=== PATIENT | female | born 1970 | race Caucasian/White ===

== ENCOUNTER → 2023-03-20 15:52 | Outpatient (CLI) | payer OTHER, SELFPAY ==
[2023-03-20 18:09] LABS: Coronavirus 19, PCR Not Detected (NotDetected); Influenza A, PCR Not Detected (NotDetected); Influenza B, PCR Not Detected (NotDetected)
[2023-03-20 18:33] LABS: Basophils # 0.1 K/mm3 (0-0.2); Basophils % 0.3 % (0.1-2.0); Eosinophils # 0.1 K/mm3 (0.0-0.4); Eosinophils % 0.7 % (0.1-12.0); Hematocrit 42.4 % (37.0-47.0); Hemoglobin 14.1 g/dL (12.2-16.2); Lymphocytes # 1.2 K/mm3 (0.7-4.5); Lymphocytes % 7.5 % (10-50); Mean Corpuscular HGB Conc 33.2 g/dL (31.8-35.4); Mean Corpuscular Hemoglobin 32.3 pg (27.0-31.2); Mean Corpuscular Volume 97.3 fl (81-99); Mean Platelet Volume 10.1 fl (7.4-10.4); Monocytes # 1.2 K/mm3 (0.1-1.0); Neutrophils # 13.8 K/mm3 (1.8-7.8); Neutrophils % 84.4 % (37.0-80.0); Platelet Count 253 K/mm3 (142-424); Red Blood Count 4.36 M/mm3 (4.20-5.40); Red Cell Distribution Width 13.9 % (11.5-17.5); White Blood Count 16.4 K/mm3 (4.8-10.8)
[2023-03-20 18:37] LABS: MANUAL DIFFERENTIAL MANUAL DIFFERENTIAL (MANUAL DIFF)
[2023-03-20 19:34] LABS: Lymphocytes % 15 % (10-50); Monocytes % 6 % (2-9); Neutrophils % 79 % (42-76); Platelet Estimate Normal; RBC Morphology Normal; Total Cells Counted 100
== END ==
LOC: LAB.DROPOF 03-23 06:35
PROVIDERS: PCP Nurse Practitioner; Visit Provider Nurse Practitioner
DX: J06.9 Acute upper respiratory infection, unspecified (principal)
CPT/HCPCS: 85007; 85025; 87635; 87636; C9803; U0003; U0005

== ENCOUNTER → 2023-07-27 13:00 | Outpatient (CLI) | payer OTHER, SELFPAY ==
[2023-07-27 18:30] LABS: Basophils % 0.5 % (0.1-2.0); Eosinophils # 0.3 K/mm3 (0.0-0.4); Eosinophils % 3.5 % (0.1-12.0); Hematocrit 49.7 % (37.0-47.0); Hemoglobin 15.6 g/dL (12.2-16.2); Lymphocytes # 2.7 K/mm3 (0.7-4.5); Lymphocytes % 35.2 % (10-50); Mean Corpuscular HGB Conc 31.4 g/dL (31.8-35.4); Mean Corpuscular Hemoglobin 30.7 pg (27.0-31.2); Mean Corpuscular Volume 97.9 fl (81-99); Mean Platelet Volume 10.2 fl (7.4-10.4); Monocytes # 0.6 K/mm3 (0.1-1.0); Monocytes % 7.4 % (1.7-9.3); Neutrophils # 4.1 K/mm3 (1.8-7.8); Neutrophils % 53.5 % (37.0-80.0); Platelet Count 265 K/mm3 (142-424); Red Blood Count 5.07 M/mm3 (4.20-5.40); White Blood Count 7.7 K/mm3 (4.8-10.8)
[2023-07-27 18:57] LABS: Hemoglobin A1C 5.3 % (4.0-6.0)
[2023-07-27 19:08] LABS: Thyroid Stimulating Hormone 3.41 uIU/mL (0.465-4.68)
[2023-07-27 19:22] LABS: Alanine Aminotransferase 20 U/L (12-78); Albumin Level 4.5 g/dl (3.5-5.0); Albumin/Globulin Ratio 1.6 (1.1-1.8); Alkaline Phosphatase 67 U/L (38-126); Anion Gap 9.6 mEq/L (5-15); Aspartate Amino Transferase 31 U/L (14-36); Bilirubin,Total 0.5 mg/dl (0.2-1.3); Blood Urea Nitrogen 10 mg/dl (7-17); Calcium 9.6 mg/dl (8.4-10.2); Carbon Dioxide 31 mmol/L (22.0-30.0); Chloride 103 mmol/L (98-107); Cholesterol 264 mg/dl (140-200); Estimated Glomerular Filt Rate 75 ml/min (>60); GFR (African American) 90 ML/MIN (>60); Globulin 2.8 g/dL (1.3-3.2); Glucose 97 mg/dl (74-100); Potassium 4.6 mmoL/L (3.5-5.1); Sodium 139 mmol/L (136-145); Total Protein,Serum 7.3 g/dl (6.3-8.2); Triglycerides 73 mg/dl (30-150); VLDL Cholesterol 15 mg/dL (0-40)
[2023-07-27 19:29] LABS: HDL Cholesterol 131 mg/dl (40-60)
[2023-07-27 19:33] LABS: Direct LDL Cholesterol 103.89 mg/dL (100-129)
== END ==
PROVIDERS: PCP Nurse Practitioner; Visit Provider Nurse Practitioner
DX: F41.8 Other specified anxiety disorders (principal); E66.9 Obesity, unspecified; Z68.33 Body mass index [BMI] 33.0-33.9, adult; Z79.899 Other long term (current) drug therapy
CPT/HCPCS: 80053; 80061; 83036; 84443; 85025

== ENCOUNTER 2023-11-12 19:42 | Outpatient (CLI) | payer OTHER, SELFPAY ==
[2023-11-12 19:44] LABS: Adenovirus,PCR Not Detected (NotDetected); Coronavirus 19, PCR Not Detected (NotDetected); Coronavirus 229E Not Detected (NotDetected); Coronavirus NL63 Not Detected (NotDetected); Coronavirus OC43 Not Detected (NotDetected); Coronovirus HKU1,PCR Not Detected (NotDetected); Human Metapneumovirus Not Detected (NotDetected); Influenza A, PCR Not Detected (NotDetected); Influenza AH1, 2009 Not Detected (NotDetected); Influenza AH1, PCR Not Detected (NotDetected); Influenza AH3,PCR Not Detected (NotDetected); Influenza B, PCR Not Detected (NotDetected); Parainfluenza 1, PCR Not Detected (NotDetected); Parainfluenza 2, PCR Not Detected (NotDetected); Parainfluenza 3, PCR Not Detected (NotDetected); Parainfluenza 4, PCR Not Detected (NotDetected); Respiratory Syncytial Virus Not Detected (NotDetected); Rhinovirus/Enterovirus Not Detected (NotDetected)
[2023-11-12 19:57] LABS: Basophils % 0.7 % (0.1-2.0); Eosinophils % 0.7 % (0.1-12.0); Lymphocytes # 1.4 K/mm3 (0.7-4.5); Lymphocytes % 40.1 % (10-50); Mean Corpuscular HGB Conc 33.4 g/dL (31.8-35.4); Mean Corpuscular Hemoglobin 32.2 pg (27.0-31.2); Mean Corpuscular Volume 96.5 fl (81-99); Mean Platelet Volume 10.9 fl (7.4-10.4); Monocytes # 0.1 K/mm3 (0.1-1.0); Monocytes % 2.8 % (1.7-9.3); Neutrophils # 1.9 K/mm3 (1.8-7.8); Neutrophils % 55.7 % (37.0-80.0); Platelet Count 297 K/mm3 (142-424); Red Blood Count 5.59 M/mm3 (4.20-5.40); White Blood Count 3.5 K/mm3 (4.8-10.8)
[2023-11-12 20:11] LABS: Chloride 98 mmol/L (98-107)
[2023-11-12 20:12] LABS: Potassium 4.1 mmoL/L (3.5-5.1); Sodium 128 mmol/L (136-145)
[2023-11-12 20:14] LABS: Blood Urea Nitrogen 13 mg/dl (7-17); Estimated Glomerular Filt Rate 43 ml/min (>60); GFR (African American) 52 ML/MIN (>60)
[2023-11-12 20:15] LABS: Alanine Aminotransferase 22 U/L (12-78); Albumin Level 4.1 g/dl (3.5-5.0); Albumin/Globulin Ratio 1.6 (1.1-1.8); Alkaline Phosphatase 56 U/L (38-126); Anion Gap 14.1 mEq/L (5-15); Aspartate Amino Transferase 40 U/L (14-36); Calcium 9.1 mg/dl (8.4-10.2); Carbon Dioxide 20 mmol/L (22.0-30.0); Globulin 2.5 g/dL (1.3-3.2); Glucose 116 mg/dl (74-100); Total Protein,Serum 6.6 g/dl (6.3-8.2)
== END 2023-11-12 23:59 ==
LOC: LAB.DROPOF 19:42
PROVIDERS: PCP Nurse Practitioner; Visit Provider Nurse Practitioner
DX: J06.9 Acute upper respiratory infection, unspecified (principal); R09.81 Nasal congestion; J02.9 Acute pharyngitis, unspecified; R51.9 Headache, unspecified; L50.9 Urticaria, unspecified
CPT/HCPCS: 80053; 85025; 87581; 87632; 87635; 87798

== ENCOUNTER 2023-11-23 18:21 | Outpatient (CLI) | payer OTHER, SELFPAY ==
[2023-11-23 19:51] LABS: Anion Gap 7.2 mEq/L (5-15); Blood Urea Nitrogen 8 mg/dl (7-17); Calcium 8.6 mg/dl (8.4-10.2); Carbon Dioxide 33 mmol/L (22.0-30.0); Chloride 99 mmol/L (98-107); Estimated Glomerular Filt Rate 65 ml/min (>60); GFR (African American) 79 ML/MIN (>60); Glucose 80 mg/dl (74-100); Potassium 4.2 mmoL/L (3.5-5.1); Sodium 135 mmol/L (136-145)
== END 2023-11-23 23:59 ==
LOC: LAB.DROPOF 18:22
PROVIDERS: PCP Nurse Practitioner; Visit Provider Nurse Practitioner
DX: R94.4 Abnormal results of kidney function studies (principal)
CPT/HCPCS: 80048

== ENCOUNTER 2024-10-20 09:00 | Outpatient (CLI) | payer OTHER, SELFPAY ==
[2024-10-20 19:12] LABS: Hematocrit 44.5 % (37.0-47.0); Hemoglobin 14.7 g/dL (12.2-16.2); Mean Corpuscular Hemoglobin 31.2 pg (27.0-31.2); Mean Corpuscular Volume 94.5 fl (81-99); Mean Platelet Volume 11.4 fl (7.4-10.4); Platelet Count 281 K/mm3 (142-424); Red Blood Count 4.71 M/mm3 (4.20-5.40); Red Cell Distribution Width 14.5 % (11.5-17.5); White Blood Count 7.8 K/mm3 (4.8-10.8)
[2024-10-20 19:13] LABS: Basophils % 0.5 % (0.1-2.0); Eosinophils # 0.4 K/mm3 (0.0-0.4); Eosinophils % 4.5 % (0.1-12.0); Lymphocytes # 2.5 K/mm3 (0.7-4.5); Lymphocytes % 32.1 % (10-50); Monocytes # 0.6 K/mm3 (0.1-1.0); Monocytes % 7.8 % (1.7-9.3); Neutrophils # 4.3 K/mm3 (1.8-7.8); Neutrophils % 54.8 % (37.0-80.0)
[2024-10-20 19:28] LABS: Alanine Aminotransferase 28 U/L (12-78); Albumin Level 4.3 g/dl (3.5-5.0); Albumin/Globulin Ratio 1.7 (1.1-1.8); Alkaline Phosphatase 59 U/L (38-126); Anion Gap 5.8 mEq/L (5-15); Aspartate Amino Transferase 38 U/L (14-36); Bilirubin,Total 0.7 mg/dl (0.2-1.3); Blood Urea Nitrogen 10 mg/dl (7-17); Calcium 9.6 mg/dl (8.4-10.2); Carbon Dioxide 32 mmol/L (22.0-30.0); Chloride 105 mmol/L (98-107); Cholesterol 259 mg/dl (140-200); Estimated Glomerular Filt Rate 74 ml/min (>60); GFR (African American) 90 ML/MIN (>60); Globulin 2.5 g/dL (1.3-3.2); Glucose 111 mg/dl (74-100); Potassium 4.8 mmoL/L (3.5-5.1); Sodium 138 mmol/L (136-145); Total Protein,Serum 6.8 g/dl (6.3-8.2); Triglycerides 79 mg/dl (30-150); VLDL Cholesterol 16 mg/dL (0-40)
[2024-10-20 19:35] LABS: Chol/HDL Ratio 2.4 (1-3.5); HDL Cholesterol 106 mg/dl (40-60)
[2024-10-20 19:38] LABS: Direct LDL Cholesterol 121.62 mg/dL (100-129)
[2024-10-20 19:47] LABS: 25-OH Vitamin D, Total 69.2 ng/mL (30-100)
[2024-10-20 19:58] LABS: Thyroid Stimulating Hormone 2.02 uIU/mL (0.465-4.68)
[2024-10-20 20:37] LABS: Folate > 20.00 ng/mL
[2024-10-20 20:50] LABS: HIV Combo NEGATIVE (Negative)
[2024-10-21 00:40] LABS: Vitamin B12 > 1000 pg/mL (239-931)
[2024-10-22 08:14] LABS: HCV Ab Non Reactive (Non Reactive)
== END 2024-10-20 23:59 | disposition home or self-care (01) ==
LOC: LAB.DROPOF 10-21 09:45
PROVIDERS: PCP Nurse Practitioner Family; Visit Provider Nurse Practitioner Family
DX: Z00.00 Encounter for general adult medical examination without abnormal findings (principal)
CPT/HCPCS: 80050; 80053; 80061; 82306; 82607; 82746; 84436; 84443; 85025; 86803; 87389

== ENCOUNTER 2025-01-18 12:44 | Outpatient (CLI) | payer OTHER, SELFPAY ==
[2025-01-18 19:41] LABS: Chloride 100 mmol/L (98-107)
[2025-01-18 19:42] LABS: Albumin Level 5.2 g/dl (3.5-5.0); Potassium 4.1 mmoL/L (3.5-5.1); Sodium 137 mmol/L (136-145)
[2025-01-18 19:44] LABS: Blood Urea Nitrogen 8 mg/dl (7-17); Estimated Glomerular Filt Rate 87 ml/min (>60); GFR (African American) 105 ML/MIN (>60)
[2025-01-18 19:45] LABS: Alanine Aminotransferase 19 U/L (12-78); Albumin/Globulin Ratio 2.2 (1.1-1.8); Alkaline Phosphatase 73 U/L (38-126); Anion Gap 13.1 mEq/L (5-15); Aspartate Amino Transferase 28 U/L (14-36); Bilirubin,Total 0.5 mg/dl (0.2-1.3); Calcium 10.2 mg/dl (8.4-10.2); Carbon Dioxide 28 mmol/L (22.0-30.0); Cholesterol 258 mg/dl (140-200); Globulin 2.4 g/dL (1.3-3.2); Glucose 79 mg/dl (74-100); Total Protein,Serum 7.6 g/dl (6.3-8.2); Triglycerides 67 mg/dl (30-150); VLDL Cholesterol 13 mg/dL (0-40)
[2025-01-18 19:56] LABS: Hemoglobin A1C 5.2 % (4.0-6.0)
[2025-01-18 20:00] LABS: Direct LDL Cholesterol 112.62 mg/dL (100-129)
[2025-01-18 20:06] LABS: HDL Cholesterol 108 mg/dl (40-60)
[2025-01-18 20:12] LABS: Chol/HDL Ratio 2.4 (1-3.5)
== END 2025-01-18 23:59 | disposition home or self-care (01) ==
LOC: LAB.DROPOF 01-19 10:23
PROVIDERS: PCP Nurse Practitioner; Visit Provider Nurse Practitioner
DX: F41.8 Other specified anxiety disorders (principal); E66.811 Obesity, class 1; E66.09 Other obesity due to excess calories; Z68.33 Body mass index [BMI] 33.0-33.9, adult; F10.20 Alcohol dependence, uncomplicated; M25.562 Pain in left knee
CPT/HCPCS: 80053; 80061; 83036; 84550

== ENCOUNTER 2025-01-23 08:37 | Day surgery (SDC) | payer OTHER, SELFPAY ==
[2025-01-20 13:36] VITALS: BMI 33.5
[2025-01-23 09:12] VITALS: BP 149/74; PULSE 71; RESP 20; TEMP 36.1; O2SAT 97
--- NOTE | 2025-01-23 09:23 | EXP.ANES.CKL ---
[facility] Disclaimer: The information contained in this section may have been updated after the patient was seen, as this information can be updated by other users. Medical History Alcohol dependence Juan blood in stool Personal history of smoking Bilateral lower extremity edema Asymptomatic varicose veins of bilateral lower extremities Anxiety with depression Obesity Surgical History Hx of rotator cuff surgery Hx of hysterectomy Family History Sister Cancer Mother Cancer Social History Smoking Status: Current every day smoker alcohol intake: current alcohol intake frequency: holidays/special occasions only substance use type: denies use current occupational status: employed Travel in the last 8 weeks: None caffeine: Yes [facility] Anesthesia Checklist Patient Identification Patient Identification: Verbal (Name & ) Structural Data Admitted From: Home Planned Operative Procedure/s: colonoscopy Consent for Planned Operative Procedure(s) Verified: Yes NPO Status Verified Time NPO: 00:00 Airway Assessment Mallampati Score:: Class II C-Spine Mobility Assessed: Yes TMJ Mobility Assessed: Yes Dentition: Good Dentition Neurological Assessment Level of Consciousness: Awake, Alert and Appropriate Anesthesia Plan Anesthesia Risk discussed: Yes Anesthesia Plan: Verified ASA Class: II Anesthesia Type: MAC
[2025-01-23 09:27] VITALS: O2SAT 100
--- NOTE | 2025-01-23 09:28 | P.HP_ITS ---
History of Present Illness *Admission Date: 01/23/25 *Reason for visit:: Screening for colon cancer *History of present illness: Mrs. Pollock is a 54-year-old female who is here for initial screening colonoscopy. The examination is deemed medically necessary for screening colonoscopy. The patient has been seen, interviewed and examined prior to the procedure by both myself and the anesthesia provider. [facility] Disclaimer: The information contained in this section may have been updated after the patient was seen, as this information can be updated by other users. Medical History (Updated 01/23/25 @ 09:29 by Monty Hare II, MD) Alcohol dependence Juan blood in stool Personal history of smoking Bilateral lower extremity edema Asymptomatic varicose veins of bilateral lower extremities Anxiety with depression Obesity Surgical History Hx of rotator cuff surgery Hx of hysterectomy Family History Sister Cancer Mother Cancer Social History (Updated 01/23/25 @ 09:24 by José Manuel Avelar CRNA) Smoking Status: Current every day smoker alcohol intake: current alcohol intake frequency: holidays/special occasions only substance use type: denies use current occupational status: employed Travel in the last 8 weeks: None caffeine: Yes Have you lived/traveled outside [place] in past 30 days?: No Contact w/someone who lives/traveled outside [place] past 30 days?: No Exposure to someone with infectious disease in past 14 days?: No Do you have a fever (greater than 100.4 F or 38 C)?: No Have you tested positive for COVID-19: No Exposed to someone with COVID-19 in past 14 days?: No Do you have a sore throat?: No Do you have a cough?: No Do you have any weakness?: No Do you have any diarrhea?: No Are you experiencing any unusual bleeding?: No Do you have any muscle aches/pain?: No Do you have any abdominal pain?: No Are you experiencing loss of taste or smell?: No Review of Systems Review of Systems Review of systems (narrative): Negative *Cardiovascular Comments: Negative *Gastrointestinal Comments: Negative *Genitourinary Comments: Negative *Musculoskeletal Comments: Negative *Neurologic Comments: Negative Meds Home Medications and Allergies Home Medications ?Medication ?Instructions ?Recorded ?Confirmed ?Type albuterol sulfate 90 mcg/actuation See Rx Instructions .Route 06/01/24 01/20/25 Rx aerosol inhaler .COMPLEX #8.5 grams bupropion HCl 300 mg 24 hr tablet, See Rx Instructions .Route 08/08/24 01/20/25 Rx extended release .COMPLEX #90 tabs trazodone 100 mg tablet See Rx Instructions .Route 08/08/24 01/23/25 Rx .COMPLEX #90 tabs hydrochlorothiazide 12.5 mg tablet See Rx Instructions .Route 10/20/24 01/23/25 Rx .COMPLEX #90 tabs venlafaxine 75 mg capsule,extended See Rx Instructions .Route 10/20/24 01/20/25 Rx release 24 hr .COMPLEX #90 caps estradiol 0.01% (0.1 mg/gram) 1 appful vaginal DAILY #42.5 grams 10/27/24 01/20/25 Rx vaginal cream fluticasone propionate 50 1 spray intranasal DAILY #16 grams 12/08/24 01/20/25 Rx mcg/actuation nasal spray,suspension (Flonase Allergy Relief) sodium,potassium,mag sulfates 17.5 See Rx Instructions PO .COMPLEX 01/09/25 01/20/25 Rx gram-3.13 gram-1.6 gram oral soln #354 mL (Suprep Bowel Prep Kit) cefdinir 300 mg capsule 300 mg PO BID #20 caps 01/18/25 01/20/25 Rx ciprofloxacin 0.3 %-dexamethasone 4 drp otic (ear) BID 7 days #7.5 mL 01/18/25 01/23/25 Rx 0.1 % ear drops,suspension fluconazole 150 mg tablet 150 mg PO WEEKLY #2 tabs 01/18/25 01/20/25 Rx naltrexone 50 mg tablet 50 mg PO DAILY #30 tabs 01/18/25 01/20/25 Rx New Prescriptions to Start Prescriptions: Allergies Allergy/AdvReac Type Severity Reaction Status Date / Time Sulfa (Sulfonamide Allergy Mild Other Verified 01/23/25 09:10 Antibiotics) Exam Data for Last 24 hours Vital signs and Labs for Last 24 Hours: Temp Pulse Resp BP Pulse Ox O2 Del Method O2 Flow Rate 97.0 F L 71 20 149/74 H 97 Nasal Cannula 5 01/23/25 09:12 01/23/25 09:12 01/23/25 09:12 01/23/25 09:12 01/23/25 09:12 01/23/25 09:27 01/23/25 09:27 I & O for Last 24 hours: Intake & Output 01/20/25 01/21/25 01/22/25 01/23/25 23:59 23:59 23:59 23:59 Weight 172 lb *Routine HEENT Exam Head: Present normocephalic Eye: Present EOMI and PERRL ENT: Present mucous membranes moist *Routine Neck Exam Neck: Present supple *Routine Respiratory Exam Respiratory: Present CTA bilaterally *Routine Cardiovascular Exam Cardiovascular: Present RRR *Routine Abdominal Exam Abdominal: Present soft and normoactive bowel sounds; Absent tenderness *Routine Rectal Exam Rectal:: deferred *Routine Genitalia Exam Genitalia:: deferred *Routine Extremities Exam Extremities: Absent cyanosis, clubbing or edema *Routine Skin Exam Skin: Present warm; Absent rash *Routine Neurological Exam Neurological: Present alert and oriented X3 Assessment and Plan *Assessment and plan (1) Screening for colon cancer: Status: Acute Category: Medical Code(s): Z12.11 - Encounter for screening for malignant neoplasm of colon Plan A/P: 1. Screening for colon cancer is the preprocedural diagnosis. The patient will be anesthetized/sedated using MAC sedation. The patient has been seen and examined. Cardiac and lung assessment prior to the examination is stable. Proceed with planned screening colonoscopy
--- NOTE | 2025-01-23 09:29 | HMH.PROCNOTE ---
[facility] Procedure Note Date: 01/23/25 Time: 09:49 Procedure Note:: Colonoscopy Procedure Report: Colonoscopy with cold snare polypectomy Endoscopist: Monty Hare II, MD Referring physician: KEIRA Meza Date of Procedure: January 23, 2025 Equipment: Olympus 190 variable stiffness pediatric colonoscope Sedation: MAC sedation Indication: Mrs. Pollock is a 54-year-old female who is here for initial screening colonoscopy. She reports no abdominal pain, weight loss, change in her bowel habits or rectal bleeding. She reports no family history of colon cancer. Procedure: Prior to the procedure, a history and physical exam was performed, and patient's medications and allergies were reviewed. The risks, benefits and alternatives of the sedation and procedure were discussed with the patient. All questions were answered and informed consent was obtained. The patient was brought to the procedure room. Patient identification and proposed procedure were verified by the physician and the nurse. The patient was placed in a left lateral decubitus position and the scope was passed under direct vision. Throughout the procedure, the patient's blood pressure, pulse, and oxygen saturations were monitored continuously. The colonoscopy was accomplished without difficulty. The patient tolerated the procedure well. Findings: On digital rectal examination there was normal rectal tone. There were no external hemorrhoids. The colonoscope was introduced through the anal canal to the rectum and advanced to the cecum. The ileocecal valve and appendiceal orifice were identified. The scope was advanced a short distance into the ileum which appeared grossly normal. The scope was then withdrawn into the colon. There were 3 polyps (ascending x 2 (9 and 10 mm) and descending x 1 (4 mm)). These were all removed via cold snare polypectomy. A single Endo Clip was placed over the polypectomy site of the larger ascending colon polyp to prevent post polypectomy bleeding. The remaining cecum, ascending and transverse colon and mucosa were grossly normal. There were scattered diverticuli throughout the descending and sigmoid colon (LEFT colon). The rectum itself was normal. Upon retroflexion within the rectum there were grade 2 internal hemorrhoids. The preparation was excellent throughout with [place] Preparation Score of 9. The cecal time was 12 minutes. Impression: 1. Colonic polyps x 3 (4, 9 and 10 mm) 2. Left-sided diverticulosis 3. Grade 2 internal hemorrhoids Plan: I will follow-up the polyp histology and recommend repeat surveillance colonoscopy again in 3 years based upon size and adenomatous pathology. I would recommend psyllium bulking fiber supplementation on a maintenance basis.
[2025-01-23 09:49] VITALS: BP 124/78; PULSE 86; RESP 17; TEMP 36.7; O2SAT 99
[2025-01-23 09:59] VITALS: BP 112/78; PULSE 84; RESP 16; O2SAT 99
[2025-01-23 10:09] VITALS: BP 125/77; PULSE 64; RESP 16; O2SAT 98
[2025-01-23 10:19] VITALS: BP 117/69; PULSE 66; RESP 18; O2SAT 100
== END 2025-01-23 10:39 | disposition home or self-care (01) ==
PROVIDERS: PCP Nurse Practitioner; Visit Provider Internal Medicine Gastroenterology
PROC: 0DJD8ZZ Inspection of Lower Intestinal Tract, Via Natural or Artificial Opening Endoscopic (ICD-10-PCS; CPT 45378; principal; 2025-01-23 10:00)
DX: K63.5 Polyp of colon (principal); K57.30 Diverticulosis of large intestine without perforation or abscess without bleeding; K64.1 Second degree hemorrhoids; Z12.11 Encounter for screening for malignant neoplasm of colon
CPT/HCPCS: 45385

== ENCOUNTER 2025-03-06 09:04 | Outpatient (CLI) | payer OTHER, SELFPAY ==
--- NOTE | 2025-03-06 09:00 | US_ITS ---
FINAL REPORT TECHNIQUE: Sonographic images of the right upper quadrant were obtained. CLINICAL HISTORY: RUQ pain, alcohol dependence COMPARISON: None FINDINGS: PANCREAS: Unremarkable. LIVER: Homogeneous. No focal hepatic lesion. No intrahepatic biliary ductal dilatation. The portal vein is patent with normal directional flow. GALLBLADDER: No gallstones. No gallbladder wall thickening or pericholecystic fluid. COMMON DUCT: 3 mm. Normal for age. RIGHT KIDNEY: The right kidney measures 9.7 cm. There is no hydronephrosis, mass, or stone. FREE FLUID: None. IMPRESSION: Unremarkable ultrasound of the right upper quadrant. Reviewed, Interpreted and Dictated by Jennifer Hong MD Transcribed by Eula Laughlin Authenticated and [facility]
== END 2025-03-06 23:59 | disposition home or self-care (01) ==
LOC: RAD 09:05
PROVIDERS: PCP Nurse Practitioner; Visit Provider Nurse Practitioner
DX: R10.11 Right upper quadrant pain (principal); F10.20 Alcohol dependence, uncomplicated
CPT/HCPCS: 76705

== ENCOUNTER 2025-07-10 08:09 | Outpatient (CLI) | payer OTHER, SELFPAY ==
--- NOTE | 2025-07-10 10:00 | CT_ITS ---
FINAL REPORT TECHNIQUE: Thin section axial images were obtained through the lungs using a low-dose technique per lung cancer screening protocol. Reconstruction images were obtained using the axial data. Exam was performed using dose reduction technique. CLINICAL HISTORY: lung cancer screening CURRENT SMOKER 1/2PPD X36 YEARS COMPARISON: None FINDINGS: CTDLvol: 2.90 DLP: Nine 6.38 Current smoker 18 pack year history Lungs: No acute pulmonary abnormality. No suspicious nodules. There is evidence of prior granulomatous disease. Lymph nodes: No thoracic lymphadenopathy. Mediastinum: Heart size is normal. Pleura/pericardium: No pleural or pericardial effusion. Other: No acute abnormality in the upper abdomen. IMPRESSION: No suspicious pulmonary nodule or mass. Lung RADS: 1 Recommendation: 12-month follow-up LDCT Reviewed, Interpreted and Dictated by Jennifer Hong MD Transcribed by Marisol Ochoa Authenticated and . [facility]
== END 2025-07-10 23:59 | disposition home or self-care (01) ==
LOC: RAD 08:09
PROVIDERS: PCP Nurse Practitioner; Visit Provider Nurse Practitioner
DX: Z12.2 Encounter for screening for malignant neoplasm of respiratory organs (principal); Z87.891 Personal history of nicotine dependence
CPT/HCPCS: 71271